=== PATIENT | female | born 1995 | race Two or more races ===

== ENCOUNTER 2017-06-30 13:57 | Emergency (ER) | payer MEDICAID ==
[~2017-06-30] VITALS: Ht 172.7 cm; Wt 96.2 kg
[2017-06-30 15:05] LABS: Urine Bacteria NONE SEEN /hpf (None Seen); Urine Blood 1+ /uL (Negative); Urine Mucus FEW (None Seen); Urine Specific Gravity 1.039 (1.001-1.035); Urine WBC <1 /hpf (0 - 5)
[2017-06-30 15:36] LABS: Basophils # (auto) 0 uL; Eosinophils # (auto) 0 uL; Eosinophils % (auto) 0.5 % (0.0-7.0); Hematocrit 36.4 % (36.0-46.0); Hemoglobin 12.2 g/dL (12.2-16.2); Lymphocytes # (auto) 1.5 uL; Mean Corpuscular Hemoglobin 25.9 pg (28.0-32.0); Mean Corpuscular Hgb Conc. 33.4 g/dL (32.0-36.0); Nucleated Red Blood Cells % 0.1 %; White Blood Cell 8.6 10^3/uL (4.4-10.8)
[2017-06-30 15:39] LABS: Basophils % (auto) 0.6 % (0.0-2.0); Lymphocytes % (auto) 17.5 % (10.0-50.0); Mean Corpuscular Volume 77.5 fL (80.0-100.0); Monocytes # (auto) 0.5 uL; Monocytes % (auto) 5.7 % (0.0-12.0); Neutrophils # (auto) 6.5 uL; Neutrophils % (auto) 75.7 % (37.0-80.0); Platelet Count (auto) 396 10^3/uL (140-450); Red Cell Distribution Width 14.3 % (11.8-14.3)
[2017-06-30 16:02] LABS: Albumin 3.9 g/dL (3.4-5.0); BUN/Creatinine Ratio 11.4; Bilirubin, Total 0.3 mg/dL (0.2-1.0); Calcium 8.7 mg/dL (8.5-10.1)
[2017-06-30 18:31] VITALS: BP 116/66
== END 2017-06-30 19:21 | disposition home or self-care (01) ==
LOC: ER 13:57
DX: R10.11 Right upper quadrant pain (principal); F12.10 Cannabis abuse, uncomplicated
CPT/HCPCS: 36415; 76705; 80053; 81001; 81025; 83690; 85025

== ENCOUNTER 2018-05-10 21:29 | Emergency (ER) | payer MEDICAID ==
[~2018-05-10] VITALS: Ht 172.7 cm; Wt 54.4 kg
[2018-05-10 22:28] LABS: Basophils # (auto) 0.1 uL; Eosinophils # (auto) 0.1 uL; Eosinophils % (auto) 1.1 % (0.0-7.0); Mean Corpuscular Hemoglobin 26.6 pg (28.0-32.0); Monocytes # (auto) 0.5 uL; Red Blood Cells 4.87 10^6/uL (4.0-5.20)
[2018-05-10 22:30] LABS: Basophils % (auto) 1.4 % (0.0-2.0); Hematocrit 39.3 % (36.0-46.0); Lymphocytes # (auto) 2.3 uL; Mean Corpuscular Hgb Conc. 33.1 g/dL (32.0-36.0); Mean Corpuscular Volume 80.5 fL (80.0-100.0); Monocytes % (auto) 8.1 % (0.0-12.0); Neutrophils # (auto) 2.7 uL; Neutrophils % (auto) 48.4 % (37.0-80.0); Nucleated Red Blood Cells % 0.1 %; Platelet Count (auto) 293 10^3/uL (140-450); Red Cell Distribution Width 15.5 % (11.8-14.3); White Blood Cell 5.6 10^3/uL (4.4-10.8)
[2018-05-10 23:12] LABS: Alanine Aminotransferase 15 U/L (13-56); Alkaline Phosphatase 81 U/L (45-117); Anion Gap 6 (5-15); Aspartate Aminotransferase 12 U/L (15-37); BUN/Creatinine Ratio 11.9; Bilirubin, Total 0.3 mg/dL (0.2-1.0); Blood Alcohol < 3.0 mg/dL (0-5); Blood Urea Nitrogen 7 mg/dL (7-18); Calcium 8.3 mg/dL (8.5-10.1); Carbon Dioxide 24 mmol/L (21-32); Chloride 108 mmol/L (98-107); GFR African American 165 mL/min; GFR Non-African American 137 mL/min; Glucose 92 mg/dL (74-106); Potassium 3.5 mmol/L (3.5-5.1); Sodium 138 mmol/L (136-145); Total Protein 7.3 g/dL (6.4-8.2)
[2018-05-10 23:18] LABS: Urine Bacteria MOD /hpf (None Seen); Urine Blood Negative /uL (Negative); Urine Mucus FEW (None Seen); Urine Specific Gravity 1.012 (1.001-1.035); Urine WBC 8 /hpf (0 - 5)
[2018-05-10 23:20] LABS: Alcohol, Urine < 3.0 mg/dL (0-5); Amphetamine Screen, Urine NEGATIVE (NEGATIVE); Barbiturate Scree,Urine NEGATIVE (NEGATIVE); Benzodiazephine Screen, Urine NEGATIVE (NEGATIVE); Cannabinoid Screen, Urine POSITIVE (NEGATIVE); Cocaine Screen, Urine NEGATIVE (NEGATIVE); Opiate Scree,Urine NEGATIVE (NEGATIVE); Phencyclidine Screen, Urine NEGATIVE (NEGATIVE)
[2018-05-10 23:59] LABS: Salicylate < 1.7 mg/dL (2.8-20.0)
[2018-05-11] LABS: Acetaminophen < 2.0 ug/mL (10-30)
[2018-05-11 04:50] LABS: Calcium 8.6 mg/dL (8.5-10.1); Potassium 3.5 mmol/L (3.5-5.1)
[2018-05-11 04:53] LABS: BUN/Creatinine Ratio 11.3; Bilirubin, Total 0.4 mg/dL (0.2-1.0); Total Protein 7.3 g/dL (6.4-8.2)
[2018-05-11 12:44] VITALS: BP 102/58
== END 2018-05-11 13:06 | disposition short-term general hospital (02) ==
LOC: ER 21:29 → EDBD 21:29 → ER 05-11 13:06
DX: T39.312A Poisoning by propionic acid derivatives, intentional self-harm, initial encounter (principal); F41.9 Anxiety disorder, unspecified; F32.9 Major depressive disorder, single episode, unspecified; F12.10 Cannabis abuse, uncomplicated; Y92.9 Unspecified place or not applicable
CPT/HCPCS: 36415; 80053; 80307; 80320; 80329; 81001; 81025; 85025; 93005; 94761

== ENCOUNTER 2019-03-07 07:23 | Inpatient (IN) | payer MEDICAID ==
[~2019-03-07] VITALS: Ht 172.7 cm; Wt 77.3 kg
[2019-03-07 08:16] LABS: Basophils # (auto) 0.1 uL; Basophils % (auto) 0.6 % (0.0-2.0); Eosinophils # (auto) 0.1 uL; Eosinophils % (auto) 0.5 % (0.0-7.0); Hemoglobin 15.2 g/dL (12.2-16.2); Lymphocytes # (auto) 1.4 uL; Lymphocytes % (auto) 13.1 % (10.0-50.0); Mean Corpuscular Hemoglobin 28.8 pg (28.0-32.0); Mean Corpuscular Hgb Conc. 33.7 g/dL (32.0-36.0); Mean Corpuscular Volume 85.4 fL (80.0-100.0); Monocytes # (auto) 0.4 uL; Monocytes % (auto) 3.6 % (0.0-12.0); Neutrophils # (auto) 8.6 uL; Neutrophils % (auto) 82.2 % (37.0-80.0); Platelet Count (auto) 303 10^3/uL (140-450); Red Blood Cells 5.27 10^6/uL (4.0-5.20); Red Cell Distribution Width 14.1 % (11.8-14.3); White Blood Cell 10.5 10^3/uL (4.4-10.8)
[2019-03-07 08:35] LABS: Calcium 8.9 mg/dL (8.5-10.1); Potassium 3.3 mmol/L (3.5-5.1)
[2019-03-07 08:39] LABS: BUN/Creatinine Ratio 13.9; Bilirubin, Total 0.4 mg/dL (0.2-1.0); Total Protein 7.7 g/dL (6.4-8.2)
[2019-03-07 09:41] LABS: Urine Bacteria FEW /hpf (None Seen); Urine Blood Negative /uL (Negative); Urine Mucus FEW (None Seen); Urine Specific Gravity 1.037 (1.001-1.035); Urine WBC 27 /hpf (0 - 5)
[2019-03-07] MEDS ORDERED: SODIUM CHLORIDE 0.9% 1,000 ML IVB ONE (16:43)
[2019-03-07] MEDS ORDERED: cefTRIAXone 1GM/50ML D5W 50 ML IV ONE (16:45)
[2019-03-07] MEDS ORDERED: KETOROLAC TROMETH 30 MG/ML 1ML VIAL IV ONE (16:45)
[2019-03-07] MEDS ORDERED: NITROGLYCERIN 0.4 MG SL TAB SL PRN (17:00)
[2019-03-07] MEDS ORDERED: MORPHINE SULF INJ 2 MG/ML SYRINGE 1ML IV PRN (17:00)
[2019-03-07] MEDS ORDERED: PROMETHAZINE HCL 25 MG/ML 1ML IV PRN (17:00)
[2019-03-07] MEDS ORDERED: ACETAMINOPHEN 500 MG TAB PO PRN (17:00)
[2019-03-07] MEDS: FAMOTIDINE (10MG/ML) 2ML VL IV SCH (17:00)
[2019-03-07] MEDS ORDERED: MORPHINE SULFATE 4 MG/ML SYR/VIAL IV PRN ×2 (17:00)
[2019-03-07] MEDS: SOD CHL 0.9%/ KCL 40MEQ 1,000 ML IV SCH (18:23)
--- NOTE | 2019-03-07 20:19 | NUR ---
Telemetry admit from [facility] admitted to Telemetry unit after SBAR received. Patient oriented to YING GRANGER, anastasiia RN, unit, room, bed, and unit policies regarding patient care and visiting hours. Patient now on continuous telemetry monitoring, tele box #[id number] and telemetry reading on arrival to unit is Sinus Bradycardia at 50. Patient weighed by bed scale and encouraged to call if they need something. All questions and concerns addressed, patient verbalized understanding.
[2019-03-07] MEDS: metroNIDAZOLE 500MG/100ML 100 ML IV SCH (21:30)
[2019-03-07 21:47] VITALS: BP 98/44
[2019-03-08] MEDS: SOD CHL 0.9%/ KCL 40MEQ 1,000 ML IV SCH ×3 (02:33→18:00)
[2019-03-08 05:30] VITALS: BP_SYST 84; BP_SYST 99; BP_DIAS 40; BP_DIAS 61
[2019-03-08] MEDS: FAMOTIDINE (10MG/ML) 2ML VL IV SCH ×2 (05:50→17:42)
[2019-03-08] MEDS: metroNIDAZOLE 500MG/100ML 100 ML IV SCH ×3 (05:50→23:03)
[2019-03-08 05:51] LABS: Amylase 43 U/L (25-115); Lipase 67 U/L (73-393)
--- NOTE | 2019-03-08 07:30 | NUR ---
Opening Shift Note: Assumed care of patient, asleep in bed. No S/S of distress/SOB or pain. Bed in lowest locked position, side rails up x2, call light within reach. Patient will be instructed on POC and to call for assist PRN. Will continue to monitor for changes Q1hr and PRN.
[2019-03-08] MEDS: cefTRIAXone 1GM/50ML D5W 50 ML IV SCH (08:51)
[2019-03-08 09:05] VITALS: BP 112/63
--- NOTE | 2019-03-08 11:21 | NUR ---
Dr. Saunders at bedside. Discussed POC with patient. Patient verbally agreed. Will continue to monitor Q1HR and PRN.
[2019-03-08 13:00] VITALS: BP 120/63
[2019-03-08 13:16] LABS: INR 1.12 (0.9-1.15); Partial Thromboplastin Time 30.8 sec (23.64-32.05)
--- NOTE | 2019-03-08 16:28 | NUR ---
Pt does not want a Advance Directive.
[2019-03-08 16:49] VITALS: BP 98/50
[2019-03-08 22:00] VITALS: BP 104/66
[2019-03-09] MEDS: SOD CHL 0.9%/ KCL 40MEQ 1,000 ML IV SCH ×3 (02:20→18:44)
[2019-03-09 04:48] VITALS: BP 106/58
[2019-03-09] MEDS: FAMOTIDINE (10MG/ML) 2ML VL IV SCH ×2 (06:32→17:51)
[2019-03-09] MEDS: metroNIDAZOLE 500MG/100ML 100 ML IV SCH ×3 (06:35→22:27)
[2019-03-09] MEDS: cefTRIAXone 1GM/50ML D5W 50 ML IV SCH (08:32)
[2019-03-09 09:00] VITALS: BP 109/68
--- NOTE | 2019-03-09 11:25 | NUR ---
PT TRANSPORTED TO PRE-OP VIA BED, PRE-OP CHECKLIST COMPLETED, CONSENTS SIGNED, IV ON LEFT HAND PATENT AND FLUSHING.
[2019-03-09] MEDS ORDERED: ceFAZolin 1GM/50ML 50 ML IV ONE (11:46)
--- NOTE | 2019-03-09 12:47 | NUR ---
NUTRITION ASSESSMENT NOTES Please refer to link notes of nutrition screen form filed under the intervention section of the plan of care for further details. Est. Needs: 1950 kcal to 2300 kcal (25-30 kcal/kgBW), 63 gms to 79 gms pro (0.8-1.0 gms/kgBW). Will continue to monitor pertinent labs and reassess nutrient need prn Thank you. Addendum: 03/09/19 at [address] Amended: Links added.
[2019-03-09 13:00] VITALS: BP 109/69
[2019-03-09] MEDS ORDERED: SUCCINYLCHOLINE CHLORIDE 20 MG/ML 10ML VIAL IV ONE (13:07)
[2019-03-09] MEDS ORDERED: LIDOCAINE 1% (LOCAL ANESTH.) PF 5ml SDV ONE (13:08)
[2019-03-09] MEDS ORDERED: MIDAZOLAM HCL 1MG/1ML-2 ML VIAL ONE (13:10)
[2019-03-09] MEDS ORDERED: METOCLOPRAMIDE HCL 5MG/ml INJ 2ml VIAL ONE (13:11)
[2019-03-09] MEDS ORDERED: PROPOFOL 10 MG/ML 20 ML IV ONE (13:12)
[2019-03-09] MEDS ORDERED: ROCURONIUM 10MG/ML 10ML VIAL IV ONE (13:12)
[2019-03-09] MEDS ORDERED: fentaNYL CITRATE 100 MCG/2 ML VL ONE (13:20)
[2019-03-09] MEDS ORDERED: GLYCOPYRROLATE 0.2 MG/ML 1ML VIAL ONE ×2 (13:22→13:50)
[2019-03-09] MEDS ORDERED: NALOXONE HCL 0.4 MG/ML VIAL IV PRN (13:30)
[2019-03-09] MEDS ORDERED: HYDROmorphone HCL 2 MG/ML VL IV PRN (13:30)
[2019-03-09] MEDS ORDERED: ONDANSETRON HCL 4 MG/2 ML VIAL IV PRN (13:30)
[2019-03-09] MEDS ORDERED: NEOSTIGMINE 1 MG/ML INJ (10mg/10ML VIAL) ONE (13:50)
[2019-03-09] MEDS: HYDROmorphone HCL 2 MG/ML VL IV PRN ×2 (14:29→14:39)
--- NOTE | 2019-03-09 14:54 | NUR ---
RECEIVED REPORT FROM LEANDRO MADRID IN PACU
--- NOTE | 2019-03-09 15:04 | NUR ---
RECEIVED PT FROM PACU VIA BED, PT IS AWAKE AND ALERT, NOTED 3 SMALL INCISION ON ABDOMEN, CLEAN DRY AND INTACT, BINDER IN PLACE,WILL CONTINUE TO MONITOR.
[2019-03-09 17:00] VITALS: BP 135/80
--- NOTE | 2019-03-09 17:55 | NUR ---
pt ambulated to the bathroom, pt tolerated it well.
--- NOTE | 2019-03-09 18:55 | NUR ---
NAUSEA/VOMITING PT WAS COMPLAINING OF NAUSEA AND VOMITING AFTER EATING DINNER, NAUSEA MEDICATION GIVEN ORDERED.
--- NOTE | 2019-03-09 19:30 | NUR ---
Opening Shift Note Assumed care of patient, awake and alert. No S/S of distress/SOB or pain. Instructed on POC and to call for assist PRN. Bed in lowest locked position, call light within reach, side rails up x2. Will continue to monitor for changes Q1hr and PRN.
[2019-03-09 21:49] VITALS: BP 155/81
[2019-03-10] MEDS: SOD CHL 0.9%/ KCL 40MEQ 1,000 ML IV SCH ×2 (01:06→11:40)
[2019-03-10 05:00] VITALS: BP 111/62
[2019-03-10 05:09] LABS: Basophils # (auto) 0 uL; Basophils % (auto) 0.2 % (0.0-2.0); Eosinophils # (auto) 0 uL; Hematocrit 37.9 % (36.0-46.0); Hemoglobin 12.8 g/dL (12.2-16.2); Lymphocytes # (auto) 0.9 uL; Lymphocytes % (auto) 9.4 % (10.0-50.0); Mean Corpuscular Hgb Conc. 33.7 g/dL (32.0-36.0); Mean Corpuscular Volume 85.9 fL (80.0-100.0); Monocytes # (auto) 0.5 uL; Monocytes % (auto) 5.5 % (0.0-12.0); Neutrophils # (auto) 8.2 uL; Neutrophils % (auto) 84.9 % (37.0-80.0); Platelet Count (auto) 235 10^3/uL (140-450); Red Blood Cells 4.41 10^6/uL (4.0-5.20); Red Cell Distribution Width 13.7 % (11.8-14.3); White Blood Cell 9.6 10^3/uL (4.4-10.8)
[2019-03-10] MEDS: FAMOTIDINE (10MG/ML) 2ML VL IV SCH ×2 (05:39→17:00)
[2019-03-10] MEDS: metroNIDAZOLE 500MG/100ML 100 ML IV SCH ×2 (05:39→14:00)
--- NOTE | 2019-03-10 07:30 | NUR ---
Opening Shift Note Assumed care of patient, asleep but easily aroused. No S/S of distress/SOB or pain. Will follow up with instructions on POC and to call for assist PRN once awake. Will continue to monitor for changes Q1hr and PRN.
--- NOTE | 2019-03-10 08:20 | NUR ---
Patient awake Instructed on POC and to call for assistance PRN. Dressings to op-site dry and intact. Patient encouraged to use incentive spirometer and ambulate throughout sift. All questions and concerns addressed.
[2019-03-10 09:00] VITALS: BP 117/65
[2019-03-10] MEDS: cefTRIAXone 1GM/50ML D5W 50 ML IV SCH (09:16)
--- NOTE | 2019-03-10 09:40 | NUR ---
Patient ambulating on unit. Family member in attendance.
--- NOTE | 2019-03-10 12:40 | NUR ---
Lunch Patient tolerated portion of lunch eaten. Still haven't passed gas. Encouraged to ambulate.
[2019-03-10 13:00] VITALS: BP 112/76
--- NOTE | 2019-03-10 15:30 | NUR ---
Rounding Patient sitting up in bed stated that she feels a little bloating but she hasn't passed gas or have a BM. Encouraged her to ambulate. Patient enquired if she could have a shower, supplied provided. As per Dr. Saunders, dressings can be removed for patient to shower. No need to apply new dressing.
--- NOTE | 2019-03-10 15:50 | NUR ---
Patient stated that she was taking shower and she felt dizzy and like she was going to faint. She pulled the call light and ambulated back to bed. Still feeling dizzy. Vital Signs checked. Paco izaguirre hospitalist. BP 105/68 P. 56 O2 98% R. 20
--- NOTE | 2019-03-10 16:10 | NUR ---
Hospitalist Call Dr. Carty returned phone call. To follow up with her at 17:30 to see status of patient.
[2019-03-10 16:43] VITALS: BP 105/68
--- NOTE | 2019-03-10 17:30 | NUR ---
Discharge Received phone call from Dr. Carty. Patient can be discharged, instruct patient to take it easy, avoid strenuous activities.
--- NOTE | 2019-03-10 18:05 | NUR ---
Discharge instructions given as ordered. Encourage to follow up with PMD as instructed. All questions and concerns addressed. Patient verbalized understanding. Medication reconciliation form completed and copy given to patient. IV removed with catheter intact and pressure dressing applied. Telemetry unit already returned to ICU. Patient awaiting transportation.
--- NOTE | 2019-03-10 18:50 | NUR ---
Left for home Patient ambulated to vehicle with personal belongings, accompanied by family member. No distress noted at time of departure.
--- NOTE | 2019-03-10 18:55 | NUR ---
Slipper seen at bedside. Put in bag, labelled and placed in missing items.
== END 2019-03-10 18:50 | disposition home or self-care (01) | DRG 263 ==
LOC: ER 07:23 → TELE 07:24 → TELE-WESTW 19:32
PROVIDERS: ADMIT Internal Medicine; ATTEND Internal Medicine
PROC: 3E013GC Introduction of Other Therapeutic Substance into Subcutaneous Tissue, Percutaneous Approach (ICD-10-PCS; 2019-03-09)
PROC: 0FT44ZZ Resection of Gallbladder, Percutaneous Endoscopic Approach (ICD-10-PCS; principal; 2019-03-09 13:05)
DX: K80.00 Calculus of gallbladder with acute cholecystitis without obstruction (principal); E87.6 Hypokalemia; N39.0 Urinary tract infection, site not specified; J45.909 Unspecified asthma, uncomplicated; F12.90 Cannabis use, unspecified, uncomplicated; F41.9 Anxiety disorder, unspecified; K21.9 Gastro-esophageal reflux disease without esophagitis; F32.9 Major depressive disorder, single episode, unspecified; Z83.3 Family history of diabetes mellitus
CPT/HCPCS: 36415; 71045; 74176; 76705; 80053; 81001; 82150; 82247; 83690; 84132; 84702; 85025; 85610; 85730; 86850; 86900; 86901; 94761; 96365; 96366; 96375; G0378; J0330; J0690; J0696; J1885; J2250; J2405; J2704; J3490

== ENCOUNTER 2019-10-20 08:36 | Emergency (ER) | payer MEDICAID ==
[~2019-10-20] VITALS: Ht 172.7 cm; Wt 69.4 kg
[2019-10-20 08:43] VITALS: BP 134/101
[2019-10-20] MEDS ORDERED: LORazepam 0.5 MG TAB PO ONE (09:15)
[2019-10-20] MEDS ORDERED: diphenhdrAMINE HCL 50 MG/1 ML VL IM ONE (09:15)
== END 2019-10-20 09:47 | disposition home or self-care (01) ==
LOC: ER 08:36
DX: F41.1 Generalized anxiety disorder (principal)